=== PATIENT | female | born 1950 | race Caucasian/White ===

== ENCOUNTER 2021-10-05 16:20 | Inpatient (IN) | payer OTHER ==
[2021-10-05 16:59] VITALS: BMI 25.7
[2021-10-05] MEDS ORDERED: MAG HYDROX/AL HYDROX/SIMETH 30 ML UNIT-DOSE CUP PO PRN (17:36)
[2021-10-05] MEDS ORDERED: BENZOCAINE/MENTHOL (CHLORASEPTIC ) LOZENGE MM PRN (17:36)
[2021-10-05] MEDS ORDERED: ACETAMINOPHEN 325 MG TABLET (FP) PO PRN ×2 (17:36)
[2021-10-05] MEDS ORDERED: chlordiazePOXIDE HCL 25 MG CAPSULE PO PRN (17:36)
[2021-10-05] MEDS ORDERED: ONDANSETRON *ODT* 4 MG TABLET SL PRN (17:36)
[2021-10-05] MEDS ORDERED: MAGNESIUM CITRATE 300 ML BOTTLE PO PRN (17:36)
[2021-10-05] MEDS ORDERED: IBUPROFEN 400 MG TABLET (FP) PO PRN (17:36)
[2021-10-05] MEDS ORDERED: IBUPROFEN 600 MG TABLET (FP) PO PRN (17:36)
[2021-10-05] MEDS ORDERED: DICYCLOMINE HCL 10 MG CAPSULE PO PRN (17:36)
[2021-10-05] MEDS ORDERED: LOPERAMIDE HCL 2 MG CAPSULE PO PRN (17:36)
[2021-10-05] MEDS ORDERED: MAGNESIUM HYDROX 2400MG/30ML ORAL SUSPENSION 30 ML CUP PO PRN (17:36)
[2021-10-05] MEDS: hydrOXYzine PAMOATE 25 MG CAPSULE (FP) PO SCH ×2 (18:20→22:44)
[2021-10-05] MEDS: PRENATAL VITAMINS W/ FOLIC ACID TABLET (FP) PO SCH (19:19)
[2021-10-05] MEDS: METHOCARBAMOL 500 MG TABLET PO PRN (22:44)
[2021-10-05] MEDS: THIAMINE HCL 100 MG TABLET (FP) PO SCH (22:44)
[2021-10-05] MEDS: chlordiazePOXIDE HCL 25 MG CAPSULE PO SCH (22:45)
[2021-10-05] MEDS: MELATONIN 5 MG TABLETS PO SCH (22:45)
[2021-10-06] MEDS: chlordiazePOXIDE HCL 25 MG CAPSULE PO SCH ×4 (05:58→23:19)
[2021-10-06] MEDS: hydrOXYzine PAMOATE 25 MG CAPSULE (FP) PO SCH ×5 (05:59→23:19)
[2021-10-06] MEDS: FERROUS SO4 325 MG TABLET (FP) PO SCH (07:03)
[2021-10-06] MEDS: PRENATAL VITAMINS W/ FOLIC ACID TABLET (FP) PO SCH (10:44)
[2021-10-06] MEDS: PANTOPRAZOLE 20 MG TABLET PO SCH (10:44)
[2021-10-06] MEDS: PARoxetine HCL 20 MG TABLET PO SCH (10:44)
[2021-10-06 12:29] LABS: HEMATOCRIT 28.3 % (32.4-45.2); HEMOGLOBIN 8.8 GM/dL (10.7-15.3); MCHC 31.2 g/dl (32.0-36.0); MEAN CELL VOLUME 80.2 fl (80-96); MEAN PLT VOLUME 9.2 fl (7.5-11.1); PLATELET COUNT 79 10^3/uL (134-434); RBC 3.52 M/mm3 (3.60-5.2); WHITE BLOOD COUNT 5.2 K/mm3 (4.0-10.0)
[2021-10-06 12:37] LABS: ALBUMIN 2.8 g/dl (3.4-5.0); BLOOD UREA NITROGEN 6.6 mg/dL (7-18); CALCIUM 8.4 mg/dL (8.5-10.1)
[2021-10-06 12:40] LABS: CREATININE 0.5 mg/dL (0.55-1.3)
[2021-10-06 12:42] LABS: BILIRUBIN,TOTAL 5.1 mg/dL (0.2-1)
[2021-10-06] MEDS ORDERED: chlordiazePOXIDE HCL 25 MG CAPSULE PO ONE (13:30)
[2021-10-06] MEDS: METHOCARBAMOL 500 MG TABLET PO PRN (19:34)
[2021-10-06] MEDS: MELATONIN 5 MG TABLETS PO SCH (23:19)
[2021-10-06] MEDS: THIAMINE HCL 100 MG TABLET (FP) PO SCH (23:19)
[2021-10-07] MEDS: chlordiazePOXIDE HCL 25 MG CAPSULE PO SCH ×2 (07:06→10:26)
[2021-10-07] MEDS: hydrOXYzine PAMOATE 25 MG CAPSULE (FP) PO SCH ×5 (07:07→22:54)
[2021-10-07] MEDS: FERROUS SO4 325 MG TABLET (FP) PO SCH ×3 (08:07→18:47)
[2021-10-07] MEDS: PARoxetine HCL 20 MG TABLET PO SCH (10:18)
[2021-10-07] MEDS: PRENATAL VITAMINS W/ FOLIC ACID TABLET (FP) PO SCH (10:19)
[2021-10-07] MEDS: PANTOPRAZOLE 20 MG TABLET PO SCH (10:19)
[2021-10-07] MEDS ORDERED: POTASSIUM CHLORIDE ORAL LIQUID 20 MEQ/15 ML PO ONE (15:24)
[2021-10-07] MEDS ORDERED: LORazepam 0.5 MG TABLET PO SCH (22:00)
[2021-10-07] MEDS: THIAMINE HCL 100 MG TABLET (FP) PO SCH (22:54)
[2021-10-07] MEDS: MELATONIN 5 MG TABLETS PO SCH (22:55)
[2021-10-08] MEDS ORDERED: chlordiazePOXIDE HCL 10 MG CAPSULE PO PRN
[2021-10-08] MEDS ORDERED: chlordiazePOXIDE HCL 10 MG CAPSULE PO SCH (05:00)
[2021-10-08] MEDS: hydrOXYzine PAMOATE 25 MG CAPSULE (FP) PO SCH ×2 (06:15→09:29)
[2021-10-08] MEDS: LORazepam 0.5 MG TABLET PO SCH ×2 (06:16→18:42)
[2021-10-08] MEDS: FERROUS SO4 325 MG TABLET (FP) PO SCH ×3 (07:08→18:42)
[2021-10-08] MEDS: PARoxetine HCL 20 MG TABLET PO SCH (10:48)
[2021-10-08] MEDS: PANTOPRAZOLE 20 MG TABLET PO SCH (10:48)
[2021-10-08] MEDS: PRENATAL VITAMINS W/ FOLIC ACID TABLET (FP) PO SCH (10:48)
[2021-10-08 10:58] LABS: BILIRUBIN,TOTAL 5.5 mg/dL (0.2-1)
[2021-10-08 19:04] VITALS: RESP 18
[2021-10-08 19:11] VITALS: PULSE 100
[2021-10-08] MEDS: THIAMINE HCL 100 MG TABLET (FP) PO SCH (23:31)
[2021-10-08] MEDS: MELATONIN 5 MG TABLETS PO SCH (23:31)
[2021-10-09 00:17] VITALS: BP 104/68; TEMP 96.6
[2021-10-09] MEDS ORDERED: chlordiazePOXIDE HCL 10 MG CAPSULE PO SCH (05:00)
[2021-10-09] MEDS ORDERED: LORazepam 0.5 MG TABLET PO ONE (06:00)
[2021-10-10] MEDS ORDERED: chlordiazePOXIDE HCL 10 MG CAPSULE PO ONE (05:00)
== END 2021-10-09 03:30 | disposition short-term general hospital (02) | DRG 897 ==
LOC: YASAS 16:20 → Y6N 18:17 → Y3N 10-07 01:13 → Y6N 10-07 01:14
PROVIDERS: ADMIT Allergy & Immunology; ATTEND Surgery
PROC: HZ2ZZZZ Detoxification Services for Substance Abuse Treatment (ICD-10-PCS; principal; 2021-10-05)
DX: F10.230 Alcohol dependence with withdrawal, uncomplicated (principal); F10.280 Alcohol dependence with alcohol-induced anxiety disorder; F32.A Depression, unspecified; D50.9 Iron deficiency anemia, unspecified; K21.9 Gastro-esophageal reflux disease without esophagitis; L30.9 Dermatitis, unspecified; R94.31 Abnormal electrocardiogram [ECG] [EKG]; R29.6 Repeated falls; Z99.89 Dependence on other enabling machines and devices; W19.XXXA Unspecified fall, initial encounter; Y92.239 Unspecified place in hospital as the place of occurrence of the external cause; Y93.9 Activity, unspecified; Z88.0 Allergy status to penicillin; Z88.6 Allergy status to analgesic agent
CPT/HCPCS: 36415; 80053; 82247; 82607; 82747; 83540; 83550; 85014; 85027; 86780; 87811; 93005; 93010; C9803-CS; U0003; U0005

== ENCOUNTER 2021-10-08 20:20 | Inpatient (IN) | payer OTHER ==
[2021-10-09 00:59] LABS: INR 2.06 (0.83-1.09); PROTHROMBIN TIME (PATIENT) 23.9 SEC (9.7-13.0)
[2021-10-09 01:02] LABS: ACTIVATED PTT 33.1 SECONDS (25.2-36.5)
[2021-10-09 01:16] LABS: ALBUMIN 2.9 g/dl (3.4-5.0); BLOOD UREA NITROGEN 7.3 mg/dL (7-18); CALCIUM 8.7 mg/dL (8.5-10.1)
[2021-10-09 01:20] LABS: CREATININE 0.6 mg/dL (0.55-1.3)
[2021-10-09 01:21] LABS: BILIRUBIN,TOTAL 6.4 mg/dL (0.2-1); TOT PROT 6.6 g/dl (6.4-8.2)
[2021-10-09 01:23] LABS: BASO % 1.2 % (0-2.0); EOS % 3.1 % (0-4.5); HEMATOCRIT 28.1 % (32.4-45.2); HEMOGLOBIN 9.1 GM/dL (10.7-15.3); LYMPH % 17.1 % (8-40); MCH 25.8 pg (25.7-33.7); MCHC 32.3 g/dl (32.0-36.0); MEAN CELL VOLUME 79.9 fl (80-96); MEAN PLT VOLUME 10.5 fl (7.5-11.1); NEUT % 68.6 % (42.8-82.8); PLATELET COUNT 107 10^3/uL (134-434); RBC 3.52 M/mm3 (3.60-5.2); WHITE BLOOD COUNT 6.1 K/mm3 (4.0-10.0)
[2021-10-09 02:58] LABS: ANISOCYTOSIS 2+; MACROCYTOSIS 0; OVALOCYTE 1+; TARGET CELLS 2+; TEAR DROP CELLS 1+
[2021-10-09] MEDS ORDERED: LACTATED RINGERS SOLUTION 1000 ML INFUS.BAG IV ONE (05:20)
[2021-10-09] MEDS ORDERED: LORazepam 1 MG TABLET PO PRN (05:46)
[2021-10-09] MEDS: PrednisoLONE 15 MG/5 ML UNIT-DOSE CUP PO SCH ×2 (06:07→13:29)
[2021-10-09 06:34] LABS: HEMATOCRIT 26.7 % (32.4-45.2); HEMOGLOBIN 8.5 GM/dL (10.7-15.3); MCH 25.8 pg (25.7-33.7); MEAN CELL VOLUME 80.7 fl (80-96); MEAN PLT VOLUME 9.6 fl (7.5-11.1); PLATELET COUNT 130 10^3/uL (134-434); RBC 3.31 M/mm3 (3.60-5.2); RDW 24.2 % (11.6-15.6); WHITE BLOOD COUNT 5.3 K/mm3 (4.0-10.0)
[2021-10-09 06:50] LABS: CALCIUM 8.3 mg/dL (8.5-10.1)
[2021-10-09 06:51] LABS: ALBUMIN 2.6 g/dl (3.4-5.0); BLOOD UREA NITROGEN 6.2 mg/dL (7-18); MAGNESIUM 1.6 mg/dL (1.8-2.4)
[2021-10-09 06:54] LABS: CREATININE 0.5 mg/dL (0.55-1.3); PHOSPHOROUS 2.8 mg/dL (2.5-4.9)
[2021-10-09 06:56] LABS: BILIRUBIN,TOTAL 5.9 mg/dL (0.2-1)
[2021-10-09] MEDS ORDERED: MAGNESIUM SULFATE IN WATER 2 GM/50 ML IVPB IVPB ONE ×2 (07:00→07:52)
[2021-10-09] MEDS: ENOXAPARIN NA (PORCINE) 40 MG/0.4 ML DISP.SYRIN SQ SCH (11:16)
[2021-10-09] MEDS: PARoxetine HCL 20 MG TABLET PO SCH (11:16)
[2021-10-09] MEDS: LORazepam 1 MG TABLET PO SCH ×2 (11:16→18:59)
[2021-10-09] MEDS ORDERED: PARoxetine HCL 10 MG TABLET ONE (11:16)
[2021-10-09] MEDS ORDERED: ENOXAPARIN NA (PORCINE) 40 MG/0.4 ML DISP.SYRIN SQ ONE (11:16)
[2021-10-09] MEDS: THIAMINE HCL 200 MG/2 ML VIAL IVPB SCH (11:18)
[2021-10-09] MEDS ORDERED: THIAMINE HCL 200 MG/2 ML VIAL ONE (11:18)
[2021-10-09 12:44] LABS: BILIRUBIN,DIRECT 2.8 mg/dL (0.0-0.2)
[2021-10-09 12:45] LABS: MAGNESIUM 1.9 mg/dL (1.8-2.4)
[2021-10-09 12:48] LABS: BILIRUBIN,DIRECT 2.9 mg/dL (0.0-0.2)
[2021-10-09] MEDS ORDERED: LORazepam 1 MG TABLET ONE (18:55)
[2021-10-10] MEDS: LORazepam 1 MG TABLET PO SCH ×5 (00:37→23:00)
[2021-10-10 02:35] VITALS: BMI 19.3
[2021-10-10] MEDS: PrednisoLONE 15 MG/5 ML UNIT-DOSE CUP PO SCH (10:28)
[2021-10-10] MEDS: PARoxetine HCL 20 MG TABLET PO SCH (10:28)
[2021-10-10] MEDS: ENOXAPARIN NA (PORCINE) 40 MG/0.4 ML DISP.SYRIN SQ SCH (10:45)
[2021-10-10] MEDS: THIAMINE HCL 200 MG/2 ML VIAL IVPB SCH (10:49)
[2021-10-10 12:08] LABS: BASO % 1.3 % (0-2.0); EOS % 3.4 % (0-4.5); HEMATOCRIT 28.4 % (32.4-45.2); LYMPH % 10.6 % (8-40); MCH 25.8 pg (25.7-33.7); MCHC 31.7 g/dl (32.0-36.0); MEAN CELL VOLUME 81.2 fl (80-96); NEUT % 75.7 % (42.8-82.8); PLATELET COUNT 103 10^3/uL (134-434); RDW 24.2 % (11.6-15.6); WHITE BLOOD COUNT 5.8 K/mm3 (4.0-10.0)
[2021-10-10 12:15] LABS: INR 2.16 (0.83-1.09)
[2021-10-10 12:32] LABS: CALCIUM 8.3 mg/dL (8.5-10.1)
[2021-10-10 12:33] LABS: ALBUMIN 2.8 g/dl (3.4-5.0); BLOOD UREA NITROGEN 7.2 mg/dL (7-18); MAGNESIUM 2.1 mg/dL (1.8-2.4)
[2021-10-10 12:35] LABS: BILIRUBIN,DIRECT 4.3 mg/dL (0.0-0.2)
[2021-10-10 12:36] LABS: CREATININE 0.5 mg/dL (0.55-1.3)
[2021-10-10 12:37] LABS: BILIRUBIN,TOTAL 6.7 mg/dL (0.2-1); PHOSPHOROUS 3.7 mg/dL (2.5-4.9)
[2021-10-10 12:39] LABS: TOT PROT 6.3 g/dl (6.4-8.2)
[2021-10-10] MEDS: LACTULOSE 20 GM/30 ML UDC (FOR ORAL USE ONLY) PO SCH ×2 (17:35→23:19)
[2021-10-11] MEDS: LORazepam 1 MG TABLET PO SCH ×4 (05:44→22:17)
[2021-10-11] MEDS: PARoxetine HCL 20 MG TABLET PO SCH (09:35)
[2021-10-11] MEDS: THIAMINE HCL 200 MG/2 ML VIAL IVPB SCH (09:35)
[2021-10-11] MEDS: PrednisoLONE 15 MG/5 ML UNIT-DOSE CUP PO SCH (09:36)
[2021-10-11] MEDS: LACTULOSE 20 GM/30 ML UDC (FOR ORAL USE ONLY) PO SCH (09:36)
[2021-10-11] MEDS: ENOXAPARIN NA (PORCINE) 40 MG/0.4 ML DISP.SYRIN SQ SCH (09:36)
[2021-10-11 10:36] LABS: BASO % 0.7 % (0-2.0); EOS % 0.2 % (0-4.5); HEMATOCRIT 28.4 % (32.4-45.2); HEMOGLOBIN 9.1 GM/dL (10.7-15.3); LYMPH % 8.4 % (8-40); MCH 25.6 pg (25.7-33.7); MCHC 31.9 g/dl (32.0-36.0); MEAN CELL VOLUME 80.1 fl (80-96); MEAN PLT VOLUME 9.1 fl (7.5-11.1); NEUT % 82.7 % (42.8-82.8); PLATELET COUNT 109 10^3/uL (134-434); RBC 3.55 M/mm3 (3.60-5.2); RDW 24.9 % (11.6-15.6); WHITE BLOOD COUNT 10.2 K/mm3 (4.0-10.0)
[2021-10-11 10:43] LABS: INR 2.13 (0.83-1.09); PROTHROMBIN TIME (PATIENT) 24.7 SEC (9.7-13.0)
[2021-10-11 11:08] LABS: ALBUMIN 2.7 g/dl (3.4-5.0); CALCIUM 8.3 mg/dL (8.5-10.1)
[2021-10-11 11:09] LABS: BLOOD UREA NITROGEN 9.2 mg/dL (7-18)
[2021-10-11 11:10] LABS: CREATININE 0.5 mg/dL (0.55-1.3)
[2021-10-11 11:11] LABS: BILIRUBIN,DIRECT 4.6 mg/dL (0.0-0.2); PHOSPHOROUS 2.3 mg/dL (2.5-4.9)
[2021-10-11 11:12] LABS: BILIRUBIN,TOTAL 6.8 mg/dL (0.2-1); TOT PROT 6.2 g/dl (6.4-8.2)
[2021-10-11 13:02] LABS: EPI CELLS 3 /uL (0-25.1); HYALINE CASTS 5 /uL (0-3.1); PH,URINE 5.5 (5.0-8.0); URINE APPEARANCE CLEAR; URINE BILIRUBIN 2+ (NEGATIVE); URINE COLOR DK YELLOW; URINE GLUCOSE (UA) NEGATIVE (NEGATIVE); URINE KETONE TRACE (NEGATIVE); URINE LEUK ESTERASE 2+ (NEGATIVE); URINE NITRITE POSITIVE (NEGATIVE); URINE PROTEIN 1+ (NEGATIVE); URINE RBC 11 /uL (0-23.9); URINE WBC 153 /uL (0-25.8)
[2021-10-11 13:36] LABS: URINE BACTERIA 174.7 /uL (0-1359)
[2021-10-11] MEDS ORDERED: POTASSIUM CHLORIDE ORAL LIQUID 20 MEQ/15 ML NGT ONE ×2 (14:00→18:00)
[2021-10-11] MEDS: DEXTROSE 5%-NORMAL SALINE 1,000 ML IV SCH (14:56)
[2021-10-11] MEDS: LACTULOSE 20 GM/30 ML UDC (FOR ORAL USE ONLY) NGT SCH ×3 (14:56→22:16)
[2021-10-11] MEDS: CEFTRIAXONE 1 GM in DEXTROSE 5%-WATER - 50 ML IVPB SCH (17:51)
[2021-10-11] MEDS ORDERED: ACETAMINOPHEN 1000 MG/100 ML BAG IVPB ONE (21:41)
[2021-10-12] MEDS ORDERED: LORazepam 0.5 MG TABLET PO PRN
[2021-10-12] MEDS: DEXTROSE 5%-NORMAL SALINE 1,000 ML IV SCH (04:59)
[2021-10-12] MEDS: LORazepam 0.5 MG TABLET PO SCH ×4 (05:26→22:43)
[2021-10-12] MEDS: PARoxetine HCL 20 MG TABLET PO SCH (09:41)
[2021-10-12] MEDS: ENOXAPARIN NA (PORCINE) 40 MG/0.4 ML DISP.SYRIN SQ SCH (09:41)
[2021-10-12] MEDS: LACTULOSE 20 GM/30 ML UDC (FOR ORAL USE ONLY) NGT SCH ×4 (09:41→22:43)
[2021-10-12] MEDS: THIAMINE HCL 200 MG/2 ML VIAL IVPB SCH (09:42)
[2021-10-12] MEDS: CEFTRIAXONE 1 GM in DEXTROSE 5%-WATER - 50 ML IVPB SCH (09:43)
[2021-10-12] MEDS: PrednisoLONE 15 MG/5 ML UNIT-DOSE CUP NGT SCH (09:46)
[2021-10-12 11:04] LABS: INR 2.4 (0.83-1.09); PROTHROMBIN TIME (PATIENT) 27.8 SEC (9.7-13.0)
[2021-10-12 11:07] LABS: HEMOGLOBIN 8.7 GM/dL (10.7-15.3); MCH 25.5 pg (25.7-33.7); MEAN PLT VOLUME 9.5 fl (7.5-11.1); PLATELET COUNT 120 10^3/uL (134-434); RBC 3.42 M/mm3 (3.60-5.2); RDW 24.5 % (11.6-15.6); WHITE BLOOD COUNT 7.1 K/mm3 (4.0-10.0)
[2021-10-12 11:20] LABS: BLOOD UREA NITROGEN 8.4 mg/dL (7-18); CALCIUM 8.1 mg/dL (8.5-10.1); MAGNESIUM 1.9 mg/dL (1.8-2.4)
[2021-10-12 11:21] LABS: ALBUMIN 2.6 g/dl (3.4-5.0)
[2021-10-12 11:22] LABS: PHOSPHOROUS 1.7 mg/dL (2.5-4.9)
[2021-10-12 11:23] LABS: CREATININE 0.5 mg/dL (0.55-1.3)
[2021-10-12 13:02] LABS: ANISOCYTOSIS 0; MACROCYTOSIS 0; TARGET CELLS 1+
[2021-10-12] MEDS: DEXTROSE 5%-0.45% SALINE 1,000 ML IV SCH (14:55)
[2021-10-12] MEDS ORDERED: POTASSIUM PHOSPHATE 30 MM in DEXTROSE 5%-WATER - 500 ML IVPB ONE (16:30)
[2021-10-13] MEDS ORDERED: LORazepam 0.5 MG TABLET PO ONE (05:00)
[2021-10-13] MEDS: DEXTROSE 5%-0.45% SALINE 1,000 ML IV SCH ×4 (05:10→20:40)
[2021-10-13 10:05] LABS: HEMATOCRIT 27.8 % (32.4-45.2); HEMOGLOBIN 8.5 GM/dL (10.7-15.3); MCH 25.3 pg (25.7-33.7); MCHC 30.7 g/dl (32.0-36.0); MEAN CELL VOLUME 82.4 fl (80-96); MEAN PLT VOLUME 9.4 fl (7.5-11.1); PLATELET COUNT 135 10^3/uL (134-434); RBC 3.37 M/mm3 (3.60-5.2); RDW 24.2 % (11.6-15.6); WHITE BLOOD COUNT 6.8 K/mm3 (4.0-10.0)
[2021-10-13] MEDS: PARoxetine HCL 20 MG TABLET PO SCH ×2 (10:25→10:37)
[2021-10-13] MEDS: LACTULOSE 20 GM/30 ML UDC (FOR ORAL USE ONLY) NGT SCH ×5 (10:37→21:50)
[2021-10-13 10:39] LABS: ALBUMIN 2.4 g/dl (3.4-5.0); BLOOD UREA NITROGEN 5.9 mg/dL (7-18); MAGNESIUM 1.8 mg/dL (1.8-2.4)
[2021-10-13] MEDS: ENOXAPARIN NA (PORCINE) 40 MG/0.4 ML DISP.SYRIN SQ SCH (10:39)
[2021-10-13] MEDS: CEFTRIAXONE 1 GM in DEXTROSE 5%-WATER - 50 ML IVPB SCH (10:39)
[2021-10-13 10:42] LABS: CREATININE 0.4 mg/dL (0.55-1.3)
[2021-10-13 10:43] LABS: BILIRUBIN,TOTAL 4.2 mg/dL (0.2-1); TOT PROT 5.7 g/dl (6.4-8.2)
[2021-10-13] MEDS ORDERED: POTASSIUM CHLORIDE ORAL LIQUID 20 MEQ/15 ML PO ONE (11:58)
[2021-10-13] MEDS: PrednisoLONE 15 MG/5 ML UNIT-DOSE CUP NGT SCH (12:00)
[2021-10-13] MEDS: THIAMINE HCL 200 MG/2 ML VIAL IVPB SCH ×3 (12:01→21:51)
[2021-10-13] MEDS: PANTOPRAZOLE SODIUM 40 MG VIAL IVPUSH SCH (13:24)
[2021-10-13] MEDS ORDERED: PHYTONADIONE 10 MG/1 ML AMP IVPB ONE (15:16)
[2021-10-13] MEDS ORDERED: IBUPROFEN 600 MG TABLET (FP) PO ONE (17:27)
[2021-10-13] MEDS ORDERED: IBUPROFEN 800 MG/8 ML IJ IVPB PRN (17:55)
[2021-10-13 17:59] LABS: INR 2.33 (0.83-1.09)
[2021-10-13] MEDS: KCL 10 MEQ IVPB 10 MEQ/100 ML INFUS.BAG IVPB SCH ×4 (18:42→21:57)
[2021-10-13] MEDS: AMINO ACIDS 4.25%/D5W 1,000 ML IV SCH (20:39)
[2021-10-13] MEDS ORDERED: KCL 10 MEQ IVPB 10 MEQ/100 ML INFUS.BAG IVPB SCH (21:15)
[2021-10-14] MEDS: THIAMINE HCL 200 MG/2 ML VIAL IVPB SCH ×3 (06:27→21:28)
[2021-10-14] MEDS: DEXTROSE 5%-0.45% SALINE 1,000 ML IV SCH ×2 (08:41→23:55)
[2021-10-14] MEDS: PANTOPRAZOLE SODIUM 40 MG VIAL IVPUSH SCH (11:26)
[2021-10-14] MEDS: LACTULOSE 20 GM/30 ML UDC (FOR ORAL USE ONLY) NGT SCH ×5 (12:01→21:34)
[2021-10-14] MEDS: CEFTRIAXONE 1 GM in DEXTROSE 5%-WATER - 50 ML IVPB SCH (12:01)
[2021-10-14] MEDS: PrednisoLONE 15 MG/5 ML UNIT-DOSE CUP NGT SCH (12:02)
[2021-10-14 12:36] LABS: INR 1.9 (0.83-1.09)
[2021-10-14 13:06] LABS: ALBUMIN 2.4 g/dl (3.4-5.0); BLOOD UREA NITROGEN 8.1 mg/dL (7-18)
[2021-10-14 13:09] LABS: BILIRUBIN,DIRECT 2.5 mg/dL (0.0-0.2); CREATININE 0.4 mg/dL (0.55-1.3)
[2021-10-14 13:11] LABS: TOT PROT 5.8 g/dl (6.4-8.2)
[2021-10-14 13:13] LABS: HEMATOCRIT 26.7 % (32.4-45.2); HEMOGLOBIN 8.4 GM/dL (10.7-15.3); MCH 25.5 pg (25.7-33.7); MCHC 31.5 g/dl (32.0-36.0); MEAN PLT VOLUME 9.2 fl (7.5-11.1); PLATELET COUNT 120 10^3/uL (134-434); RDW 23.4 % (11.6-15.6); WHITE BLOOD COUNT 5.5 K/mm3 (4.0-10.0)
[2021-10-14 13:42] LABS: ANISOCYTOSIS 1+; MACROCYTOSIS 0; TARGET CELLS 1+
[2021-10-14] MEDS: AMINO ACIDS 4.25%/D5W 1,000 ML IV SCH ×2 (16:30→23:46)
[2021-10-14] MEDS ORDERED: PARoxetine HCL 20 MG TABLET PO SCH (17:00)
[2021-10-14] MEDS ORDERED: PARoxetine HCL 20 MG TABLET NR SCH (17:05)
[2021-10-15] MEDS: THIAMINE HCL 200 MG/2 ML VIAL IVPB SCH ×3 (06:10→21:17)
[2021-10-15] MEDS: LACTULOSE 20 GM/30 ML UDC (FOR ORAL USE ONLY) NGT SCH (11:27)
[2021-10-15] MEDS: CEFTRIAXONE 1 GM in DEXTROSE 5%-WATER - 50 ML IVPB SCH (11:27)
[2021-10-15] MEDS: PANTOPRAZOLE SODIUM 40 MG VIAL IVPUSH SCH (11:27)
[2021-10-15] MEDS: PrednisoLONE 15 MG/5 ML UNIT-DOSE CUP NGT SCH (11:27)
[2021-10-15 13:15] LABS: INR 1.69 (0.83-1.09); PROTHROMBIN TIME (PATIENT) 19.5 SEC (9.7-13.0)
[2021-10-15] MEDS: PrednisoLONE 15 MG/5 ML UNIT-DOSE CUP PO SCH (13:40)
[2021-10-15] MEDS: LACTULOSE 20 GM/30 ML UDC (FOR ORAL USE ONLY) PO SCH ×2 (13:53→21:17)
[2021-10-15 14:11] LABS: ALBUMIN 2.5 g/dl (3.4-5.0); CALCIUM 8.1 mg/dL (8.5-10.1); MAGNESIUM 1.8 mg/dL (1.8-2.4)
[2021-10-15 14:12] LABS: BLOOD UREA NITROGEN 8.3 mg/dL (7-18)
[2021-10-15 14:13] LABS: BILIRUBIN,DIRECT 2.2 mg/dL (0.0-0.2); CREATININE 0.5 mg/dL (0.55-1.3)
[2021-10-15 14:14] LABS: TOT PROT 6.1 g/dl (6.4-8.2)
[2021-10-15 14:15] LABS: BILIRUBIN,TOTAL 3.9 mg/dL (0.2-1)
[2021-10-15 14:16] LABS: PHOSPHOROUS 2.1 mg/dL (2.5-4.9)
[2021-10-15 17:40] LABS: BASO % 0.4 % (0-2.0); EOS % 0.4 % (0-4.5); HEMATOCRIT 27.9 % (32.4-45.2); HEMOGLOBIN 8.7 GM/dL (10.7-15.3); LYMPH % 6.7 % (8-40); MCH 25.3 pg (25.7-33.7); MCHC 31.1 g/dl (32.0-36.0); MEAN CELL VOLUME 81.1 fl (80-96); MEAN PLT VOLUME 9.7 fl (7.5-11.1); MONO % 5.1 % (3.8-10.2); NEUT % 87.4 % (42.8-82.8); PLATELET COUNT 119 10^3/uL (134-434); RBC 3.44 M/mm3 (3.60-5.2); RDW 23.6 % (11.6-15.6); WHITE BLOOD COUNT 4.3 K/mm3 (4.0-10.0)
[2021-10-15] MEDS: AMINO ACIDS 4.25%/D5W 1,000 ML IV SCH (17:52)
[2021-10-15] MEDS: DEXTROSE 5%-0.45% SALINE 1,000 ML IV SCH (18:35)
[2021-10-15] MEDS ORDERED: POTASSIUM PHOSPHATE 30 MM in SODIUM CHLORIDE 500 ML IVPB ONE (19:34)
[2021-10-15 19:50] LABS: ANISOCYTOSIS 3+; MACROCYTOSIS 1+; OVALOCYTE 1+; PLATELET ESTIMATE DECREASED; TARGET CELLS 1+
[2021-10-16] MEDS: THIAMINE HCL 200 MG/2 ML VIAL IVPB SCH ×3 (05:52→23:27)
[2021-10-16] MEDS: LACTULOSE 20 GM/30 ML UDC (FOR ORAL USE ONLY) PO SCH (05:52)
[2021-10-16] MEDS: AMINO ACIDS 4.25%/D5W 1,000 ML IV SCH ×2 (08:22→18:18)
[2021-10-16 09:51] LABS: INR 1.88 (0.83-1.09); PROTHROMBIN TIME (PATIENT) 21.7 SEC (9.7-13.0)
[2021-10-16 09:53] LABS: HEMATOCRIT 28.1 % (32.4-45.2); HEMOGLOBIN 8.6 GM/dL (10.7-15.3); MCH 24.9 pg (25.7-33.7); MCHC 30.6 g/dl (32.0-36.0); MEAN CELL VOLUME 81.4 fl (80-96); MEAN PLT VOLUME 9.7 fl (7.5-11.1); PLATELET COUNT 126 10^3/uL (134-434); RBC 3.46 M/mm3 (3.60-5.2); RDW 22.8 % (11.6-15.6)
[2021-10-16 10:05] LABS: MAGNESIUM 1.9 mg/dL (1.8-2.4)
[2021-10-16 10:06] LABS: BLOOD UREA NITROGEN 9.4 mg/dL (7-18); CALCIUM 8.3 mg/dL (8.5-10.1)
[2021-10-16 10:07] LABS: ALBUMIN 2.3 g/dl (3.4-5.0)
[2021-10-16 10:08] LABS: CREATININE 0.4 mg/dL (0.55-1.3)
[2021-10-16 10:09] LABS: PHOSPHOROUS 3.6 mg/dL (2.5-4.9)
[2021-10-16 10:11] LABS: BILIRUBIN,TOTAL 2.9 mg/dL (0.2-1); TOT PROT 5.5 g/dl (6.4-8.2)
[2021-10-16 10:28] LABS: ANISOCYTOSIS 1+; MACROCYTOSIS 1+
[2021-10-16] MEDS: CEFTRIAXONE 1 GM in DEXTROSE 5%-WATER - 50 ML IVPB SCH (11:28)
[2021-10-16] MEDS: ENOXAPARIN NA (PORCINE) 40 MG/0.4 ML DISP.SYRIN SQ SCH (11:28)
[2021-10-16] MEDS: PrednisoLONE 15 MG/5 ML UNIT-DOSE CUP PO SCH (11:29)
[2021-10-16] MEDS: PANTOPRAZOLE 40 MG TABLET PO SCH (11:29)
[2021-10-16] MEDS: PARoxetine HCL 20 MG TABLET PO SCH (11:29)
[2021-10-16] MEDS ORDERED: IRON SUCROSE INJECTION 200 MG in SODIUM CHLORIDE 90 ML IVPB ONE (12:29)
[2021-10-16] MEDS ORDERED: SODIUM CHLORIDE 500 ML IV STA (12:29)
[2021-10-16] MEDS: LACTULOSE 20 GM/30 ML UDC (FOR RECTAL USE ONLY) PR SCH ×3 (16:26→22:43)
[2021-10-17] MEDS: THIAMINE HCL 200 MG/2 ML VIAL IVPB SCH ×3 (05:44→22:58)
[2021-10-17 08:33] LABS: HEMATOCRIT 26.2 % (32.4-45.2); HEMOGLOBIN 8.2 GM/dL (10.7-15.3); MCH 25.2 pg (25.7-33.7); MCHC 31.3 g/dl (32.0-36.0); MEAN CELL VOLUME 80.8 fl (80-96); MEAN PLT VOLUME 9.7 fl (7.5-11.1); PLATELET COUNT 122 10^3/uL (134-434); RBC 3.24 M/mm3 (3.60-5.2); RDW 23.9 % (11.6-15.6); WHITE BLOOD COUNT 6.3 K/mm3 (4.0-10.0)
[2021-10-17 08:39] LABS: INR 1.89 (0.83-1.09); PROTHROMBIN TIME (PATIENT) 21.9 SEC (9.7-13.0)
[2021-10-17 09:09] LABS: BLOOD UREA NITROGEN 11.6 mg/dL (7-18); CALCIUM 8.3 mg/dL (8.5-10.1)
[2021-10-17 09:10] LABS: ALBUMIN 2.3 g/dl (3.4-5.0); MAGNESIUM 1.9 mg/dL (1.8-2.4)
[2021-10-17 09:13] LABS: BILIRUBIN,DIRECT 1.6 mg/dL (0.0-0.2); CREATININE 0.4 mg/dL (0.55-1.3); PHOSPHOROUS 2.3 mg/dL (2.5-4.9)
[2021-10-17 09:14] LABS: TOT PROT 5.4 g/dl (6.4-8.2)
[2021-10-17 09:15] LABS: BILIRUBIN,TOTAL 2.6 mg/dL (0.2-1)
[2021-10-17] MEDS: LACTULOSE 20 GM/30 ML UDC (FOR RECTAL USE ONLY) PR SCH (10:06)
[2021-10-17] MEDS ORDERED: POTASSIUM CHLORIDE TABS 20 MEQ TABLET.ER (FP) PO ONE (10:37)
[2021-10-17] MEDS ORDERED: NAPH,MB-DB/K PH,MBDB POWDER PACKET PO ONE (10:38)
[2021-10-17 10:54] LABS: ANISOCYTOSIS 1+; MACROCYTOSIS 0; OVALOCYTE 2+; TARGET CELLS 2+; TEAR DROP CELLS 1+; TOXIC GRANULATION 2+
[2021-10-17] MEDS: PANTOPRAZOLE 40 MG TABLET PO SCH (11:32)
[2021-10-17] MEDS: ENOXAPARIN NA (PORCINE) 40 MG/0.4 ML DISP.SYRIN SQ SCH (11:32)
[2021-10-17] MEDS: PARoxetine HCL 20 MG TABLET PO SCH (11:32)
[2021-10-17] MEDS: PrednisoLONE 15 MG/5 ML UNIT-DOSE CUP PO SCH (11:33)
[2021-10-17] MEDS: KCL 10 MEQ IVPB 10 MEQ/100 ML INFUS.BAG IVPB SCH ×3 (12:21→16:09)
[2021-10-17] MEDS: LACTULOSE 20 GM/30 ML UDC (FOR ORAL USE ONLY) PO SCH ×2 (14:20→22:57)
[2021-10-17 15:41] VITALS: RESP 18
[2021-10-17] MEDS: AMINO ACIDS 4.25%/D5W 1,000 ML IV SCH (20:46)
[2021-10-18] MEDS: LACTULOSE 20 GM/30 ML UDC (FOR ORAL USE ONLY) PO SCH ×3 (06:09→21:04)
[2021-10-18] MEDS: THIAMINE HCL 200 MG/2 ML VIAL IVPB SCH ×3 (06:09→21:04)
[2021-10-18] MEDS: PrednisoLONE 15 MG/5 ML UNIT-DOSE CUP PO SCH (10:19)
[2021-10-18] MEDS: PANTOPRAZOLE 40 MG TABLET PO SCH (10:20)
[2021-10-18] MEDS: PARoxetine HCL 20 MG TABLET PO SCH (10:20)
[2021-10-18] MEDS: ENOXAPARIN NA (PORCINE) 40 MG/0.4 ML DISP.SYRIN SQ SCH (12:05)
[2021-10-18 12:41] LABS: HEMATOCRIT 26.8 % (32.4-45.2); HEMOGLOBIN 8.3 GM/dL (10.7-15.3); MCH 25.3 pg (25.7-33.7); MEAN CELL VOLUME 81.6 fl (80-96); MEAN PLT VOLUME 9.7 fl (7.5-11.1); PLATELET COUNT 133 10^3/uL (134-434); RBC 3.28 M/mm3 (3.60-5.2); WHITE BLOOD COUNT 7.4 K/mm3 (4.0-10.0)
[2021-10-18 13:07] LABS: ALBUMIN 2.2 g/dl (3.4-5.0); BLOOD UREA NITROGEN 11.3 mg/dL (7-18); CALCIUM 8.4 mg/dL (8.5-10.1)
[2021-10-18 13:08] LABS: CREATININE 0.4 mg/dL (0.55-1.3); PHOSPHOROUS 2.9 mg/dL (2.5-4.9)
[2021-10-18 13:09] LABS: BILIRUBIN,TOTAL 2.2 mg/dL (0.2-1); TOT PROT 5.4 g/dl (6.4-8.2)
[2021-10-18] MEDS: AMINO ACIDS 4.25%/D5W 1,000 ML IV SCH (21:03)
[2021-10-19] MEDS: THIAMINE HCL 200 MG/2 ML VIAL IVPB SCH ×3 (05:38→22:37)
[2021-10-19] MEDS: LACTULOSE 20 GM/30 ML UDC (FOR ORAL USE ONLY) PO SCH ×3 (05:42→22:38)
[2021-10-19] MEDS: PARoxetine HCL 20 MG TABLET PO SCH (09:23)
[2021-10-19] MEDS: PANTOPRAZOLE 40 MG TABLET PO SCH (09:23)
[2021-10-19] MEDS: ENOXAPARIN NA (PORCINE) 40 MG/0.4 ML DISP.SYRIN SQ SCH (09:23)
[2021-10-19] MEDS: PrednisoLONE 15 MG/5 ML UNIT-DOSE CUP PO SCH (09:23)
[2021-10-19 09:29] LABS: HEMATOCRIT 27.4 % (32.4-45.2); HEMOGLOBIN 8.7 GM/dL (10.7-15.3); MCH 26.1 pg (25.7-33.7); MCHC 31.9 g/dl (32.0-36.0); MEAN CELL VOLUME 81.8 fl (80-96); MEAN PLT VOLUME 9.8 fl (7.5-11.1); PLATELET COUNT 144 10^3/uL (134-434); RBC 3.35 M/mm3 (3.60-5.2); RDW 25.3 % (11.6-15.6); WHITE BLOOD COUNT 6.8 K/mm3 (4.0-10.0)
[2021-10-19 10:00] LABS: ALBUMIN 2.4 g/dl (3.4-5.0); BLOOD UREA NITROGEN 12.1 mg/dL (7-18); CALCIUM 8.7 mg/dL (8.5-10.1); MAGNESIUM 2.2 mg/dL (1.8-2.4)
[2021-10-19 10:03] LABS: CREATININE 0.4 mg/dL (0.55-1.3); PHOSPHOROUS 3.2 mg/dL (2.5-4.9)
[2021-10-19 10:05] LABS: BILIRUBIN,TOTAL 2.3 mg/dL (0.2-1); TOT PROT 5.7 g/dl (6.4-8.2)
[2021-10-19] MEDS: AMINO ACIDS 4.25%/D5W 1,000 ML IV SCH (17:28)
[2021-10-20] MEDS: THIAMINE HCL 200 MG/2 ML VIAL IVPB SCH ×2 (05:53→14:31)
[2021-10-20] MEDS: LACTULOSE 20 GM/30 ML UDC (FOR ORAL USE ONLY) PO SCH ×2 (05:55→14:30)
[2021-10-20 09:34] LABS: HEMATOCRIT 27.8 % (32.4-45.2); MCH 26.3 pg (25.7-33.7); MCHC 32.2 g/dl (32.0-36.0); MEAN CELL VOLUME 81.8 fl (80-96); PLATELET COUNT 152 10^3/uL (134-434); RDW 25.7 % (11.6-15.6); WHITE BLOOD COUNT 7.4 K/mm3 (4.0-10.0)
[2021-10-20] MEDS: PANTOPRAZOLE 40 MG TABLET PO SCH (09:39)
[2021-10-20] MEDS: PARoxetine HCL 20 MG TABLET PO SCH (09:39)
[2021-10-20] MEDS: PrednisoLONE 15 MG/5 ML UNIT-DOSE CUP PO SCH (09:40)
[2021-10-20] MEDS: ENOXAPARIN NA (PORCINE) 40 MG/0.4 ML DISP.SYRIN SQ SCH (09:40)
[2021-10-20 10:03] LABS: ALBUMIN 2.3 g/dl (3.4-5.0); BLOOD UREA NITROGEN 11.5 mg/dL (7-18); CALCIUM 8.4 mg/dL (8.5-10.1)
[2021-10-20 10:07] LABS: CREATININE 0.4 mg/dL (0.55-1.3); PHOSPHOROUS 3.1 mg/dL (2.5-4.9)
[2021-10-20 10:09] LABS: BILIRUBIN,TOTAL 2.7 mg/dL (0.2-1); TOT PROT 5.6 g/dl (6.4-8.2)
[2021-10-20 15:39] VITALS: BP 118/63; PULSE 93; TEMP 99.4
== END 2021-10-20 16:39 | DRG 432 ==
LOC: JER 20:20 → JERBED 10-09 03:29 → J5S 10-10 01:14
PROVIDERS: ADMIT Hospitalist; ATTEND Internal Medicine
PROC: HZ2ZZZZ Detoxification Services for Substance Abuse Treatment (ICD-10-PCS; principal; 2021-10-09)
DX: K70.10 Alcoholic hepatitis without ascites (principal); G92.8 Other toxic encephalopathy; F10.230 Alcohol dependence with withdrawal, uncomplicated; E51.2 Wernicke's encephalopathy; E87.0 Hyperosmolality and hypernatremia; N39.0 Urinary tract infection, site not specified; K72.90 Hepatic failure, unspecified without coma; K70.9 Alcoholic liver disease, unspecified; E83.39 Other disorders of phosphorus metabolism; K86.89 Other specified diseases of pancreas; D50.9 Iron deficiency anemia, unspecified; F32.A Depression, unspecified; R29.6 Repeated falls; R26.81 Unsteadiness on feet; E87.6 Hypokalemia
CPT/HCPCS: 36415; 70450-TC; 71045-TC-FY; 74181-TC; 76705-TC; 80048; 80053; 80076; 81003; 82105; 82140; 82247; 82248; 82607; 82747; 82962; 83540; 83550; 83735; 84100; 85014; 85025; 85027; 85610; 85730; 86705; 86708; 86780; 86803; 87040; 87086; 87340; 87517; 87811; 93005; 93010; 93976; 97116-GP; 97161-GP; 99285-25; C9803-CS; J1756; U0003; U0005